=== PATIENT | male | born 1965 | race Caucasian/White ===

== ENCOUNTER 2019-03-08 12:04 | Emergency (ER) | payer OTHER ==
[~2019-03-08] VITALS: Ht 182.9 cm; Wt 86.2 kg
[~2019-03-08 12:04] MED LIST: BACTRIM DS TAB1 EAC1 ORAL; IBUPROFEN600 MG ORAL; MUPIROCIN22 GM TOPIC
--- NOTE | 2019-03-08 12:20 | NUR ---
ED Nurse Note: Patient walked into ED from home c/o back pain since last night. patient reports nausea and vomiting since this morning. patient is a/o x4 ambulatory breathing unlabored and even, unable to provide urine sample at this time. patient on a hospital gown.
[2019-03-08 12:23] VITALS: BP 169/72
--- NOTE | 2019-03-08 12:25 | NUR ---
ED Nurse Note: patient also reports pain on his right scrotom. no swelling noted. patient c/o generalized body pain as well.
--- NOTE | 2019-03-08 12:26 | NUR ---
ED Nurse Note: Zak NOEL at bedside.
[2019-03-08] MEDS ORDERED: Ketorolac 30mg Inj IV ONE (12:30)
--- NOTE | 2019-03-08 13:21 | Diagnostic Imaging Report ---
EXAM: US Scrotum CLINICAL HISTORY: PAIN TECHNIQUE: Real-time ultrasound of the scrotum with color Doppler and image documentation. COMPARISON: No relevant prior studies available. FINDINGS: Right testicle: Unremarkable. No mass. No torsion. Left testicle: Microlithiasis. No mass. No torsion. Epididymides: Unremarkable. Scrotum: Unremarkable. IMPRESSION: Left testicular microlithiasis. Otherwise unremarkable exam.
[2019-03-08 13:41] LABS: ANION GAP 11 mmol/L (5-15); BLOOD UREA NITROGEN 16 mg/dL (7-18); CALCIUM 8.7 MG/DL (8.5-10.1); CARBON DIOXIDE 26 MMOL/L (21-32); CHLORIDE 102 MMOL/L (98-107); CREATININE 0.9 MG/DL (0.55-1.30); POTASSIUM 4.6 MMOL/L (3.5-5.1); SODIUM 139 MMOL/L (136-145)
[2019-03-08 13:55] LABS: ALANINE AMINOTRANSFERASE 26 U/L (12-78); ALBUMIN 3.4 G/DL (3.4-5.0); ALBUMIN/GLOBULIN RATIO 0.8 (1.0-2.7); ALKALINE PHOSPHATASE 65 U/L (46-116); ASPARTATE AMINO TRANSFERASE 40 U/L (15-37); BILIRUBIN,TOTAL 0.6 MG/DL (0.2-1.0); CKMB 0.5 NG/ML (0.0-3.6)
--- NOTE | 2019-03-08 13:58 | NUR ---
ED Nurse Note: xray at bedside.
[2019-03-08 14:10] LABS: HEMATOCRIT 35.9 % (42.0-52.0); HEMOGLOBIN 11.8 G/DL (14.2-18.0); MEAN CORPUSCULAR VOLUME 82 FL (80-99); PLATELET COUNT 179 K/UL (150-450); RED CELL DISTRIBUTION WIDTH 13.2 % (11.6-14.8); WHITE BLOOD COUNT 5.7 K/UL (4.8-10.8)
--- NOTE | 2019-03-08 15:00 | Diagnostic Imaging Report ---
EXAM: XR Left Tibia and Fibula, 2 Views CLINICAL HISTORY: PAIN TECHNIQUE: Frontal and lateral views of the left tibia and fibula. COMPARISON: No relevant prior studies available. FINDINGS: Bones/joints: Unremarkable. No acute fracture. No dislocation. Soft tissues: Subcutaneous edema. No radiopaque foreign body. IMPRESSION: No acute osseous or surrounding. Subcutaneous edema.
--- NOTE | 2019-03-08 15:00 | Diagnostic Imaging Report ---
EXAM: XR Right Tibia and Fibula, 2 Views CLINICAL HISTORY: PAIN TECHNIQUE: Frontal and lateral views of the right tibia and fibula. COMPARISON: No relevant prior studies available. FINDINGS: Bones/joints: Unremarkable. No acute fracture. No dislocation. Soft tissues: Subcutaneous edema. No radiopaque foreign body. IMPRESSION: No acute osseous abnormality. Subcutaneous edema.
--- NOTE | 2019-03-08 15:01 | Diagnostic Imaging Report ---
EXAM: XR Chest, 1 View CLINICAL HISTORY: PAIN TECHNIQUE: Frontal view of the chest. COMPARISON: No relevant prior studies available. FINDINGS: Lungs: Unremarkable. No consolidation. Pleural space: Unremarkable. No pneumothorax. Heart: Unremarkable. No cardiomegaly. Mediastinum: Unremarkable. Bones/joints: Unremarkable. IMPRESSION: No evidence of acute pulmonary disease
[2019-03-08 15:08] LABS: APPEARANCE,URINE CLEAR; BILIRUBIN, URINE NEGATIVE (NEGATIVE); COLOR,URINE PALE YELLOW; GLUCOSE, URINE (UA) NEGATIVE (NEGATIVE); KETONES,URINE 1+ (NEGATIVE); LEUKOCYTE ESTERASE ,URINE NEGATIVE (NEGATIVE); NITRITE,URINE NEGATIVE (NEGATIVE); PH,URINE 8 (4.5-8.0); PROTEIN,URINE NEGATIVE (NEGATIVE); UROBILINOGEN,URINE NORMAL MG/DL (0.0-1.0)
[2019-03-08 15:21] VITALS: BP 165/71
--- NOTE | 2019-03-08 15:21 | NUR ---
ED Nurse Note: food provided as per SADIE STYLES patient is ok to eat. wound cx sent to lab.
--- NOTE | 2019-03-08 15:34 | Emergency Room Report ---
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 Patient was originally seen [facility] few days ago for chronic wound and given a prescription for Bactrim. Patient reports that he often goes to the street and uses drug dealers to use either IV injection or take narcotics. Patient denies any recent IV injection however has a very hard access. Reports that he last took Tylenol 3 yesterday. Denies chest pain palpitation at this time. Has not taken any other medication for symptom relief. Denies abdominal pain, nausea vomiting. Also complains of lower back pain radiating to the scrotum complains of scrotal pain however no scrotal swelling is noted. (Zak Bernstein) Allergies: Coded Allergies: CEPHALEXIN (Verified Allergy, Unknown, 03/08/19) Patient History Past Medical History: see triage record Past Surgical History: unable to obtain Pertinent Family History: none Social History: Reports: drug use - IV drug user, and narcotics from the street Immunizations: UTD Reviewed Nursing Documentation: PMH: Agreed; PSxH: Agreed (Zak Bernstein) Nursing Documentation-PMH Hx Hypertension: Yes (Zak Bernstein) Review of Systems All Other Systems: negative except mentioned in HPI (Zak Bernstein) Physical Exam Vital Signs Date Time Temp Pulse Resp B/P (MAP) Pulse Ox O2 Delivery O2 Flow Rate FiO2 03/08/19 12:13 100.0 115 20 172/79 (110) 99 Room Air Sp02 EP Interpretation: reviewed, abnormal General Appearance: alert, GCS 15, non-toxic, mild distress Head: normocephalic, atraumatic Eyes: bilateral eye normal inspection, bilateral eye PERRL ENT: hearing grossly normal, normal pharynx, no angioedema, normal voice Neck: full range of motion, supple/symm/no masses Respiratory: lungs clear, no rhonchi, no respiratory distress, no retraction, no wheezing Cardiovascular #1: regular rate, rhythm, no edema, no murmur, normal capillary refill Cardiovascular #2: 2+ carotid (R), 2+ carotid (L), 2+ radial (R), 2+ radial (L) , 2+ dorsalis pedis (R), 2+ dorsalis pedis (L) Gastrointestinal: normal bowel sounds, non tender, soft, non-distended, no guarding, no rebound Rectal: deferred Genitourinary: no CVA tenderness, scrotum normal Musculoskeletal: back normal, no calf tenderness, pelvis stable, Rex's Sign negative Neurologic: alert, motor strength/tone normal, oriented x3, sensory intact, responsive, speech normal Psychiatric: judgement/insight normal, memory normal, mood/affect normal, no suicidal/homicidal ideation Skin: other - Infected chronic wounds bilateral lower extremities Lymphatic: no adenopathy (Zak Bernstein) Medical Decision Making PA Attestation All my diagnosis and treatment plans were reviewed ad discussed with my supervising physician Dr. Richards All diagnoses and treatment plans were reviewed and discussed with my supervising physician Dr. 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 Patient was originally seen [facility] few days ago for chronic wound and given a prescription for Bactrim. Patient reports that he often goes to the street and uses drug dealers to use either IV injection or take narcotics. Patient denies any recent IV injection however has a very hard access. Reports that he last took Tylenol 3 yesterday. Denies chest pain palpitation at this time. Has not taken any other medication for symptom relief. Denies abdominal pain, nausea vomiting. Also complains of lower back pain radiating to the scrotum complains of scrotal pain however no scrotal swelling is noted. Ddx considered but are not limited to : Sepsis, cellulitis, DVT, superficial infection, abscess Vital signs: are WNL, pt. is febrile H&PE are most consistent with: Sepsis, cellulitis chronic ORDERS: Sepsis work-up, x-ray of bilateral lower extremities, scrotal ultrasound ED INTERVENTIONS: Clindamycin, NS bolus, Toradol, Tylenol, Motrin Patient was processed to be admitted and transferred to [facility] and my supervising physician Dr. Wood spoke to the admitting doctor at [facility] Dr. Odell, transport was here when patient decided to leave AGAINST MEDICAL ADVICE. Patient sounded safe and sound and had full judgment with making a decision. Also my supervising physician Dr. Wood spoke to the patient and could not convince the patient to stay at the hospital. Patient did not want to go to [facility] due to being too far from his house. Patient understand the severity of his symptoms. Patient understand that no pain medication and antibiotics will be given to him since he is leaving AGAINST MEDICAL ADVICE (Zak Bernstein) ER Course I evaluated this patient alongside SADIE Bernstein. I agree with her assessment the patient requires admission and also agree with the ED course. (Esteban Richards MD) EKG Diagnostic Results Rate: tachycardiac ST Segments: no acute changes Other Impression No acute ST changes (Zak Bernstein) Chest X-Ray Diagnostic Results Chest X-Ray Diagnostic Results : Chest X-Ray Ordered: Yes # of Views/Limited/Complete: 1 View Indication: Shortness of Breath EP Interpretation: Yes PA Xray: Interpretation reviewed, by supervising , and agrees with findings. Interpretation: no consolidation, no effusion, no pneumothorax Impression: No acute disease Electronically Signed by: Zak Eric PA-C (Zak Bernstein) Other X-Ray Diagnostic Results Other X-Ray Diagnostic Results #1: X-Ray ordered: Left tib-fib # of Views/Limited Vs Complete: 2 View Indication: Pain EP Interpretation: Yes PA Xray: Interpretation reviewed, by supervising MD, and agrees with findings. Interpretation: no dislocation, no soft tissue swelling, no fractures, other - No osteomyelitis noted Impression: No acute disease Electronically Signed by: Zak Eric PA-C Other X-Ray Diagnostic Results #2: X-Ray ordered: Right tib-fib # of Views/Limited Vs Complete: 2 View Indication: Pain EP Interpretation: Yes PA Xray: Interpretation reviewed, by supervising MD, and agrees with findings. Interpretation: no dislocation, no soft tissue swelling, no fractures, other - No osteomyelitis noted Impression: No acute disease Electronically Signed by: Zak Eric PA-C (Zak Bernstein) Last Vital Signs Date Time Temp Pulse Resp B/P (MAP) Pulse Ox O2 Delivery O2 Flow Rate FiO2 03/08/19 15:21 101.3 92 19 165/71 99 Room Air (Zak Bernstein) Status: unchanged (Esteban Richards MD) Disposition: AGAINST MEDICAL ADVICE Condition: Stable Referrals: [facility],REFERRING (PCP) Zak Bernstein Mar 08, 2019 15:34 Esteban Richards MD Mar 09, 2019 06:45
[2019-03-08] MEDS ORDERED: Methocarbamol 750mg tab ORAL ONE (16:00)
[2019-03-08 16:36] VITALS: BP 165/71
--- NOTE | 2019-03-08 16:36 | NUR ---
AMA: SEE AMA FORM. IV sites were was removed by Evi Montgomery RN. Zak NOEL and Dr. Wood explained about AMA. patient signed form witnessed by Evi Montgomery RN. patient left steady gait with his friend.
== END 2019-03-08 16:16 | disposition left against medical advice (07) ==
LOC: EMR 12:49
DX: A41.9 Sepsis, unspecified organism (principal); L03.116 Cellulitis of left lower limb; L03.115 Cellulitis of right lower limb; I10 Essential (primary) hypertension; Z88.8 Allergy status to other drugs, medicaments and biological substances; R00.0 Tachycardia, unspecified; Z53.21 Procedure and treatment not carried out due to patient leaving prior to being seen by health care provider
CPT/HCPCS: 36415; 71045; 73590; 76870; 80053; 81003; 82553; 83605; 83880; 84484; 85007; 85025; 85610; 85730; 86710; 86850; 86900; 86901; 87040; 87070; 87205; 93005; 96361; 96365; 96375; J1885; J7030; Z7502; 99284; S0077

== ENCOUNTER 2020-04-08 13:19 | Outpatient (CLI) | payer MEDICAID ==
--- NOTE | 2020-04-08 19:14 | Consultation ---
DATE OF CONSULTATION: 04/08/2020 CONSULTING PHYSICIAN: Mathieu Tinsley MD REFERRED FOR: Screening colonoscopy. PAST MEDICAL HISTORY: None. PAST SURGICAL HISTORY: None. MEDICATIONS: None. FAMILY HISTORY: No family history of GI malignancies. SOCIAL HISTORY: Patient denies any tobacco, alcohol, or drug abuse. ALLERGIES: No known drug allergies. REVIEW OF SYSTEMS: Negative. PHYSICAL EXAMINATION: VITAL SIGNS: Temperature 97.4, blood pressure is 132/82, pulse is 60, respirations 20. Weight is 205. HEENT: Normocephalic, atraumatic. Sclerae anicteric. NECK: Supple. No evidence of obvious lymphadenopathy. CARDIOVASCULAR: Regular rate and rhythm. Plus S1-S2. LUNGS: Clear to auscultation bilaterally. ABDOMEN: Positive bowel sounds. Soft and nontender. No rebound. No guarding. No peritoneal sign. EXTREMITIES: No cyanosis, no clubbing, no edema. ASSESSMENT AND PLAN: This is a 54-year-old male, referred for screening colonoscopy. Patient was given instruction for colonoscopy. Risks and benefits of procedure was explained to him. We will plan to schedule him as soon as authorization is obtained. Mathieu Tinsley M.D. DR: MYRON JOB#: [id number] CC:
== END 2020-04-08 15:19 | disposition home or self-care (01) ==
LOC: PAN 13:19
DX: Z00.00 Encounter for general adult medical examination without abnormal findings (principal)
CPT/HCPCS: 99203